=== PATIENT | female | born 1995 | race Caucasian/White ===

== ENCOUNTER 2018-02-24 19:26 | Inpatient (IN) | payer OTHER ==
[~2018-02-24] VITALS: Ht 162.6 cm; Wt 3.2 kg
[2018-02-24] MEDS ORDERED: PRENATABS FA T1 EACH PO (19:35)
== END 2018-02-28 14:57 | disposition home or self-care, planned readmission (81) | DRG 766 ==
LOC: O/R 19:26 → LDR 19:26 → O/R 02-25 13:28 → OB/GYN 02-25 16:34
PROVIDERS: Obstetrics & Gynecology
PROC: 3E0P7VZ Introduction of Hormone into Female Reproductive, Via Natural or Artificial Opening (ICD-10-PCS; 2018-02-25)
PROC: 3E033VJ Introduction of Other Hormone into Peripheral Vein, Percutaneous Approach (ICD-10-PCS; 2018-02-25)
PROC: 4A033R1 Measurement of Arterial Saturation, Peripheral, Percutaneous Approach (ICD-10-PCS; 2018-02-25)
PROC: 4A1HXCZ Monitoring of Products of Conception, Cardiac Rate, External Approach (ICD-10-PCS; 2018-02-25)
PROC: 10D00Z1 Extraction of Products of Conception, Low, Open Approach (ICD-10-PCS; principal; 2018-02-25 13:00)
DX: O61.0 Failed medical induction of labor (principal); Z3A.39 39 weeks gestation of pregnancy; Z37.0 Single live birth; Z22.330 Carrier of Group B streptococcus